=== PATIENT | female | born 1935 | race Caucasian/White ===

== ENCOUNTER 2022-02-15 09:27 | Outpatient (CLI) | payer MEDICARE, SELFPAY | END 2022-02-15 23:59 | disposition home or self-care (01) | LOC: LAB 09:37 | PROVIDERS: PCP Family Medicine; Visit Provider Ophthalmology | DX: H04.123 Dry eye syndrome of bilateral lacrimal glands (principal); H40.1131 Primary open-angle glaucoma, bilateral, mild stage | CPT/HCPCS: 36415 ==

== ENCOUNTER 2023-02-27 09:50 | Outpatient (CLI) | payer MEDICARE, SELFPAY | END 2023-02-27 23:59 | disposition home or self-care (01) | PROVIDERS: PCP Family Medicine; Referring Provider Ophthalmology; Visit Provider Ophthalmology | DX: H04.123 Dry eye syndrome of bilateral lacrimal glands (principal) | CPT/HCPCS: 36415 ==

== ENCOUNTER → 2024-03-31 | Outpatient (CLI) | payer MEDICARE, SELFPAY ==
[2024-03-31 12:57] LABS: SERUM TEARS COLLECTION SPECIMEN PROCESSED
== END | disposition home or self-care (01) ==
PROVIDERS: PCP Family Medicine; Referring Provider Ophthalmology; Visit Provider Ophthalmology
DX: H04.123 Dry eye syndrome of bilateral lacrimal glands (principal)
CPT/HCPCS: 36415

== ENCOUNTER → 2025-05-04 | Outpatient (CLI) | payer SELFPAY ==
[2025-05-04 12:31] LABS: SERUM TEARS COLLECTION SPECIMEN PROCESSED
== END | disposition home or self-care (01) ==
PROVIDERS: PCP Family Medicine; Referring Provider Ophthalmology; Visit Provider Ophthalmology
DX: H04.123 Dry eye syndrome of bilateral lacrimal glands (principal)